=== PATIENT | female | born 1990 ===

== ENCOUNTER 2019-02-09 11:36 | Emergency (ER) | payer BC ==
[2019-02-09] MEDS ORDERED: Sodium Chloride 0.9% 10 ML Syringe FLUSH PRN (12:12)
[2019-02-09] MEDS ORDERED: FLU Vacc QS2019-20(6MOS+)/PF 60 MCG/0.5 ML SYRINGE IM ONE (12:30)
--- NOTE | 2019-02-09 14:21 | EDM.PDOC ---
ED HPI GENERAL MEDICAL PROBLEM - General Chief Complaint: Neurological Problem Stated Complaint: [facility] Time Seen by Provider: 02/09/19 12:12 Source of Information: Reports: Patient, RN Notes Reviewed - History of Present Illness INITIAL COMMENTS - FREE TEXT/NARRATIVE: [age] female is been brought here by [place] [facility] after suffering what sounds like generalized seizure for about 5-8 minutes. Upon EMS arrival she was no longer seizing, was "drowsy, postictal. Heart rate was noted to be quite fast initially in the 160s. She therefore was given diltiazem 15 mg IV in route and also 1 mg of Ativan IV prior to arrival at our facility. Upon arrival to our facility patient is awake, answering questions appropriately. She did not remember what happened. She does have history of 1 prior seizure about 6 years ago. She did have either head CT or MRI at that time and also did have an EEG, neuro follow-up. Seizure was thought to possibly be due to an increase in dosage of the Wellbutrin that she was on at the time. Therefore she was not started on seizure medication. Sounds like her EEG was normal. There has been no further seizure activity up until today's event. She has very mild headache. Slight posterior neck discomfort. No back pain at time of evaluation. There has been no nausea vomiting. She has had some coffee not much else to eat or drink this morning. She has not been recently ill in any way. Neck Pain Score (Numeric/FACES): 3 - Related Data Allergies Allergy/AdvReac Type Severity Reaction Status Date / Time nickel Allergy Other Verified 02/09/19 11:48 Home Meds: Home Meds Cetirizine [ZyrTEC] 10 mg PO DAILY 02/09/19 [History] Levalbuterol HCl [Xopenex] 0 mg INH Q6H PRN 02/09/19 [History] Montelukast [Singulair] 10 mg PO DAILY 02/09/19 [History] buPROPion HCl [Wellbutrin Xl] 300 mg PO DAILY 02/09/19 [History] guanFACINE 1 mg PO DAILY 02/09/19 [History] Past Medical History Cardiovascular History: Reports: Other (See Below) Other Cardiovascular History: Pt reports hx of tachycardia. Respiratory History: Reports: Asthma Gastrointestinal History: Reports: None Genitourinary History: Reports: None ELECTRONIC TESTER History: Reports: None Neurological History: Reports: Seizure Psychiatric History: Reports: Anxiety, Depression Endocrine/Metabolic History: Reports: None Hematologic History: Reports: None Immunologic History: Reports: None Oncologic (Cancer) History: Reports: None - Infectious Disease History Infectious Disease History: Reports: None - Past Surgical History Head Surgeries/Procedures: Reports: None HEENT Surgical History: Reports: Myringotomy w Tube(s), Oral Surgery Musculoskeletal Surgical History: Reports: Other (See Below) Other Musculoskeletal Surgeries/Procedures:: 3 Foot Surgeries Dermatological Surgical History: Reports: Other (See Below) Social & Family History - Tobacco Use Smoking Status *Q: Never Smoker - Caffeine Use Caffeine Use: Reports: Coffee - Recreational Drug Use Recreational Drug Use: No ED ROS GENERAL - Review of Systems Review Of Systems: See Below Constitutional: Denies: Fever, Chills, Diaphoresis HEENT: Denies: Sinus Problem, Throat Pain Respiratory: Denies: Shortness of Breath Cardiovascular: Reports: Palpitations. Denies: Chest Pain GI/Abdominal: Denies: Abdominal Pain, Nausea, Vomiting Musculoskeletal: Denies: Neck Pain, Shoulder Pain Skin: Denies: Rash ED EXAM, NEURO - Physical Exam Exam: See Below General Appearance: Alert, No Apparent Distress Eye Exam: Bilateral Eye: PERRL Throat/Mouth: Normal Inspection, Normal Oropharynx, Other (No tongue injury) Head Exam: Atraumatic Neck: Supple, Non-Tender Respiratory/Chest: No Respiratory Distress, Lungs Clear, Normal Breath Sounds Cardiovascular: Tachycardia GI/Abdominal: Soft, Non-Tender. No: Guarding Neurological: Alert, No Motor/Sensory Deficits, Other (Finger to nose testing nl ) Skin Exam: Warm, Dry, Normal Color, No Rash Course - Vital Signs Last Recorded V/S: Last Vital Signs Temp 97.1 F 02/09/19 11:40 Pulse 140 H 02/09/19 11:40 Resp 16 02/09/19 11:40 BP 130/84 02/09/19 11:40 Pulse Ox 99 02/09/19 11:40 - Orders/Labs/Meds Labs: Laboratory Tests 02/09/19 02/09/19 02/09/19 Range/Units 12:50 12:50 12:50 WBC 9.27 (3.98-10.04) K/mm3 RBC 5.11 (3.98-5.22) M/mm3 Hgb 13.2 (11.2-15.7) gm/dl Hct 40.3 (34.1-44.9) % MCV 78.9 L (79.4-94.8) fl MCH 25.8 (25.6-32.2) pg MCHC 32.8 (32.2-35.5) g/dl RDW Std Deviation 43.3 (36.4-46.3) fL Plt Count 329 (182-369) K/mm3 MPV 10.5 (9.4-12.3) fl Neut % (Auto) 69.5 (34.0-71.1) % Lymph % (Auto) 22.8 (19.3-51.7) % Moca % (Auto) 5.8 (4.7-12.5) % Eos % (Auto) 1.3 (0.7-5.8) Baso % (Auto) 0.5 (0.1-1.2) % Neut # (Auto) 6.44 H (1.56-6.13) K/mm3 Lymph # (Auto) 2.11 (1.18-3.74) K/mm3 Moca # (Auto) 0.54 H (0.24-0.36) K/mm3 Eos # (Auto) 0.12 (0.04-0.36) K/mm3 Baso # (Auto) 0.05 (0.01-0.08) K/mm3 Sodium 137 (136-145) mEq/L Potassium 4.0 (3.5-5.1) mEq/L Chloride 104 (98-107) mEq/L Carbon Dioxide 23 (21-32) mEq/L Anion Gap 14.0 (5-15) BUN 14 (7-18) mg/dL Creatinine 1.0 (0.55-1.02) mg/dL Est Cr Clr Drug Dosing 66.83 mL/min Estimated GFR (MDRD) > 60 (>60) mL/min BUN/Creatinine Ratio 14.0 (14-18) Glucose 74 (74-106) mg/dL Calcium 8.6 (8.5-10.1) mg/dL Total Bilirubin 0.7 (0.2-1.0) mg/dL AST 17 (15-37) U/L ALT 19 (14-59) U/L Alkaline Phosphatase 56 (46-116) U/L Total Protein 7.1 (6.4-8.2) g/dl Albumin 3.7 (3.4-5.0) g/dl Globulin 3.4 gm/dL Albumin/Globulin Ratio 1.1 (1-2) TSH 3rd Generation 3.702 (0.358-3.74) uIU/mL Meds: Medications Discontinued Medications Generic Name Dose Route Start Last Admin Trade Name Freq PRN Reason Stop Dose Admin Influenza Virus Vaccine 1 each 02/09/19 11:53 Pharmacy To Dose - Influenza Vaccine IM 02/09/19 11:54 ONETIME ONE Influenza Virus Vaccine 60 mcg 02/09/19 12:30 02/09/19 13:19 Fluzone Quad Syringe IM 02/09/19 12:31 60 mcg .ONCE ONE Administration Sodium Chloride 10 ml 02/09/19 12:12 02/09/19 12:20 Saline Flush FLUSH 10 ml ASDIRECTED PRN Administration Keep Vein Open - Re-Assessments/Exams Free Text/Narrative Re-Assessment/Exam: 02/14/19 17:54 Labs came back nl except glucose mildly low, we did get her something to eat and drink, discharge instr. as documented. Departure - Departure Time of Disposition: 14:38 Disposition: Home, Self-Care 01 Preliminary Cause of *Q: Sepsis & Multi System Organ Failure Clinical Impression: Seizure, Sinus tachycardia - Discharge Information Instructions: Seizure, Adult, [id number] Referrals: Tabatha Guadalupe, [employer] [Primary Care Provider] - Forms: ED Department Discharge Additional Instructions: Rest, return to work tomorrow as tolerated, get a blood pressure unit and do check your blood pressure and heart rate 2-3 times daily and keep a log of those readings. Follow up with Maria Guadaluep Guadalupe early next week, call [phone] for appointment. Bring the record of your heart rate and blood pressure readings for that appointment. Eat regular meals and snacks, drink plenty of water to maintain hydration. Follow-up referral to Neurology will be appropriate. Return to ED as needed if symptoms worsening in any way.
== END 2019-02-09 15:00 | disposition home or self-care (01) ==
LOC: JD.ED 11:36
DX: R56.9 Unspecified convulsions (principal); R00.0 Tachycardia, unspecified; J45.909 Unspecified asthma, uncomplicated; F41.9 Anxiety disorder, unspecified; F32.9 Major depressive disorder, single episode, unspecified; Z91.048 Other nonmedicinal substance allergy status; Z79.899 Other long term (current) drug therapy
CPT/HCPCS: 36415; 80053; 84443; 85025; 90686; 99283; 99284-25; G0008